=== PATIENT | male | born 1950 | race Caucasian/White ===

== ENCOUNTER 2024-08-23 09:54 | Outpatient (CLI) | payer MEDICARE, SELFPAY ==
[2024-08-23 10:28] LABS: INR 1.2; Partial Thromboplastin Time 25.1 Seconds (22.3-36.8); Prothrombin Time 15.2 Seconds (11.1-14.7)
--- OUTSIDE RECORDS SUMMARY | 2024-08-23 10:32 | XMS_ITS | Encounter Summary ---
Author Organization [facility] Healthcare Address [address] [place] [address] Care Team Providers Care Truss Maker Name Role Phone Monico James MD Primary Care Provider Silver Cohen MD Unavailable [phone] Reason for Visit * Reason Onset Date Comments Medical Question/Miscellaneous 08/20/2024 Encounter Details Date Type Department Care Team (Late st Contact Info) Description 08/20/2024 Telephone [facility] Primary Care at [address] [place] [address] Monico James MD [address] [place], [place] [address] [place] [address] Medical Question/Miscellaneous Social History Tobacco Use Types Packs/Day Years Used Date Smoking Tobacco: Never Smokeless Tobacco: Never Alcohol Use Standard Drinks/Week Comments Yes 0 (1 standard drink = 0.6 oz pur e alcohol) occasional Social Connection and Isolat ion Panel [NHANES] Answer Date Recorded In a typical week, how many times do you talk on the phone with family, friends, or neighbors? More than three times a week 06/10/2021 How often do you get togethe r with friends or relatives? Three times a week 06/10/2021 How often do you attend chur or rastafarian services? More than 4 times per year 06/10/2021 Do you belong to any clubs o r organizations such as buddhist groups, unions, fraternal or athletic groups, or school groups? No 06/10/2021 How often do you attend meet ings of the clubs or organizations you belong to? Never 06/10/2021 Are you , , di vorced, , never , or living with a partner? 06/10/2021 AUDIT-C Answer Date Recorded Q1: How often do you have a drink containing alc ohol? Never 05/29/2021 Q2: How many drinks containi ng alcohol do you have on a typical day when you are drinking? 1 or 2 05/29/2021 Q3: How often do you have six or more drinks on one occasion? Never 05/29/2021 Overall Financial Resource Strain (CARDIA) Answe r Date Recorded How hard is it for you to pa y for the very basics like food, housing, medical care, and heating? Not very hard 06/02/2021 PHQ-2 Answer Date Recorded PHQ-2 Total Score (If total score is 3 or more points, staff should administer the PHQ-9) 0 05/14/2024 Hunger Vital Sign Answer Date Recorded Within the past 12 months, y ou worried that your food would run out before you got the money to buy more. Never true 06/02/20 21 Within the past 12 months, t he food you bought just didn't last and you didn't have money to get more. Never true 06/02/2021 PRAPARE - Transportation Answer Date Re corded In the past 12 months, has l ack of transportation kept you from medical appointments or from getting medications? No 07/2020 In the past 12 months, has l ack of transportation kept you from meetings, work, or from getting things needed for daily living? No 06/02/2021 Housing Stability Vital Sign Answer Ezequiel e Recorded In the last 12 months, was t here a time when you were not able to pay the mortgage or rent on time? No 06/10/2021 In the last 12 months, how many places have you lived? 1 06/10/2021 In the last 12 months, was t here a time when you did not have a steady place to sleep or slept in a usp (including now)? 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 RIDGE ASSEMBLING MACHINE ADJUSTER * Telephone Encounter - Monico James MD - 08/21/2024 10:03 AM CARTRIDGE ASSEMBLING MACHINE ADJUSTER Tell him I did not personally authorize him to be contacted but many of these Medicare insurance companies like to reach out to the patient to make sure they get all of their needed preventive care. it is up to him if he wants to participate or not RIDGE ASSEMBLING MACHINE ADJUSTER * Telephone Encounter - Sammie Elliott - 08/20/2024 4:13 PM CST Medical Question/Miscellaneous Caller???s Concern: Patient is calling to verify that the PCP has not advised a company to contact him for an at home visit to take vitals, etc. Patient states he wants to make sure this is not a scam. Does message need to be routed? Yes-Action Needed RIDGE ASSEMBLING MACHINE ADJUSTER documented in this encounter Plan of Treatment Not on file documented as of this encounter Visit Diagnoses Not on filedocumented in this encounter Care Teams Truss Maker Relationship Specialty Start Date End Date Monico James MD PCP - General 09/30/16 Silver Cohen MD Consulting Physician Orthopedic Surgery 03/19/19 documented as of this encounter
--- OUTSIDE RECORDS SUMMARY | 2024-08-23 10:32 | XMS_ITS | Continuity of Care Document ---
Author Organization [facility] Address [address] [place] [phone] Phone Care Team Providers Care Senior Software Analyst Name Role Phone Gabe Contreras MD Unavailable Unavailable Procedures Procedure Date Office/outpatient visit,[facility] 2009 Office/outpatient visit,[facility] 2009 Advance Directives Directive Yes / No Effective Date File Name No Information Encounters Encounter Description Practice Location Reason(s) For Visit Diagnoses Date Provider Providers Copied on Encounter Office/outpat ient visit,[facility], [address], [address] [place] [address], tel:[phone] Orthopedic [facility] No Information 1 0 Diane Bernal. [address] [place] [address], [address] [place] [address] , . tel: [phone] Office/outpat ient visit,[facility], [address] [place] [address], [address] [place] [address], tel:[phone] [facility] No Information 2 0 Diane Bernal. [address] [place] [address], [address] [place] [address] , . tel: [phone] Family History Family Member Type Diagnosis Age At Onset No Information Payers Payer name Insurance type Covered republican ID Authorgracie bejarano(s) [employer] CI [id number] Social History Type Description Quantity Date Captured Comments Sex Male Smoking Status No Information Chief Complaint And Reason For Visit No Information Reason For Referral Reason For Referral No Information History Of Present Illness Encounter Date Complaint History Of Prese nt Illness No Information Functional Status Date Functional Assessmen t No Information Instructions Date Instruction Additional Infor mation No Information Assessments Type Assessment Date No Information Patient Care Teams Name Effective Dates (start - stop) Status Members No Information
--- OUTSIDE RECORDS SUMMARY | 2024-08-23 10:33 | XMS_ITS | Encounter Summary ---
Author Organization [facility] Healthcare Address [address] [place] [address] Care Team Providers Care Thermograph Operator Name Role Phone Monico James MD Primary Care Provider Silver Cohen MD Unavailable [phone] Encounter Details Date Type Department Care Team (Late st Contact Info) Description 07/23/[address] [facility] Primary Care at [address] [place] [address] Monico James MD [address] [place] [address] [address] [place] [address] Social History Tobacco Use Types Packs/Day Years [...] 06/10/2021 How often do you attend chur ch or cheondoism services? More than 4 times per year 06/10/2021 Do you belong to any clubs o r organizations such as zoroastrian groups, unions, fraternal or athletic groups, or [...] place to sleep or slept in a detention (including now)? 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
--- OUTSIDE RECORDS SUMMARY | 2024-08-23 10:33 | XMS_ITS | Clinical Summary ---
Author Organization [facility] Address [address] [place] [address] Care Team Providers Care Pulmonary Function Technologist Name Role Phone Monico James MD Primary Care Provider Silver Cohen MD Unavailable [phone] Allergies Active Allergy Reactions Criticality Noted Date Comments Adhesive Itching Low 04/01/2019 Clear tape Chlorhexidine Rash,Flushing (skin),Redness Medium 05/04 KEVYN wipes Medications naproxen (ALEVE) 220 mg tablet Take 1 tablet (220 mg total) by mouth every 12 (twelve) hours as needed for pain Active tiZANidine (ZANAFLEX) 2 mg tablet Take 1 tablet (2 mg total) by mouth every 6 (six) hours as needed for muscle spasms 30 tablet 3 10/01/2021 Active warfarin (COUMADIN) 1 mg tablet Take 1 tablet (1 mg total) by mouth daily 90 tablet 3 11/14/2023 Active warfarin (COUMADIN) 5 mg tabletIndicatio ns:Venous Thrombosis Take 1 tablet (5 mg total) by mouth daily 90 tablet 3 11/14/2023 Active topiramate (TOPAMAX) 25 mg tablet Take 1 tablet (25 mg total) by mouth 2 (two) times a day Call me in 4 weeks for higher dose 60 tablet 4 05/14/2024 5 Active phentermine 15 mg capsule Take 1 capsule (15 mg total) by mouth every morning 30 capsule 5 05/14/2024 5 Active methotrexate 2.5 mg tablet TAKE 3 TABLES BY MOUTH JAQUELIN 7 DAYS ON MONDAYS 39 tablet 06/10/2024 Active Active Problems Problem Noted Date Diagnosed Date Chronic bilateral deep venou s thrombosis (DVT) of extremities 12/06/2021 Medicare annual wellness visit, subsequent 01/01 Follow-up examination following surgery 03/02/20 20 Mixed hyperlipidemia 01/26/2017 Keratitis sicca, bilateral 12/16/2016 Trichiasis 08/28/2016 Blepharitis of upper and lower eyelids of both e yes 02/23/2016 Rheumatoid arthritis involving multiple sites ([facility]) 11/16/2013 Overview (10/05/2016): RHEUMATOID ARTHRITIS Benign hypertension 11/16/2013 Overview (10/05/2016): BENIGN HYPERTENSION Deep vein thrombosis (DVT) ([facility]) 11/16/2013 Overview (10/07/2016): DVT (Deep Venous Thrombosis) Other pulmonary embolism with acute cor pulmonal e 11/16/2013 Overview (10/07/2016): Pulmonary Embolism Resolved Problems Problem Noted Date Diagnosed Date Resolved Date Diabetes mellitus 05/16/2023 11/14/2023 Acute cholecystitis 05/28/2021 06/15/20 21 Multiple insect bites 03/19/20202019 Cellulitis of left lower leg 03/19/2020 06/30/2020 Rib fractures 03/08/2019 12/12/2019 Hemopneumothorax 03/08/2019 12/12/2019 Thoracolumbar spine instability 03/07/2019 12/12/2019 Overview (03/09/2019): Added automatically from request for surgery [id number] Slowing of urinary stream 01/14/2014 Overview (10/06/2016): SLOWING URINARY STREAM Vascular disorder of lower extremity 09/09/2013 07/28/2017 Overview (10/07/2016): DVT/EMBLSM LOWER EXT NOS Encounters Date Type Department Care Team Description 08/20/[address] [facility] Primary Care at [address] [place] [address] Monico James MD Medical Question/Miscellaneou s 07/25/2024 8:00 AM SURVEILLANCE ANALYST Clinical Support [facility] Medical [facility] Primary Care at [address] [place] [address] Chronic bilateral deep venous thrombosis (DVT) of extremities (HCC) (Primary Dx); Other acute pulmonary embolism with acute cor pulmonale (HCC) 07/23/[address] [facility] Primary Care at [address] [place] [phone] Monico James MD Referral Request 07/23/[address] [facility] Primary Care at [address] [place] [phone] Monico James MD 07/04/[address] [facility] Medical [facility] [address] [place] [address] [address] [place] [address] Dahlia Horan MA 06/24/2024 Telephone [facility] [address] [place] [address] [address] [place] [address] Swapnil Suazo PA 06/21/2024 9:30 AM SURVEILLANCE ANALYST Office Visit [facility] [address] [place] [address] [address] [place] [address] Swapnil Suazo PA Traumatic complete tear of right rotator cuff, initial encounter (Primary Dx); Biceps tendonitis, right; Osteoarthritis of right AC (acromioclavicular) joint; Degenerative tear of glenoid labrum of right shoulder 06/21/2024 7:40 AM SURVEILLANCE ANALYST - 06/21/2024 11:59 PM SURVEILLANCE ANALYST Hospital Encounter [facility] [address] [place] [address] [address] [place] [address] Discharge Disposition: Discharge to home or self care 06/21/2024 Orders Only [facility] [address] [place] [address] [address] [place] [address] Swapnil Suazo PA Osteoarthritis of right AC (acromioclavicular) joint (Primary Dx); Biceps tendonitis, right; Traumatic complete tear of right rotator cuff, initial encounter 06/04/2024 Orders Only [facility] Primary Care at [address] [place] [address] Monico James MD Rotator cuff tear arthropathy of right shoulder (Primary Dx) 06/04/2024 Telephone [facility] Primary Care at [address] [place] [address] Monico James MD Medical Question/Miscellaneou s 06/03/2024 8:15 AM SURVEILLANCE ANALYST Clinical Support [facility] Primary Care at [address] [place] [address] Deep vein thrombosis (DVT) of non-extremity vein, unspecified chronicity (Primary Dx); Other acute pulmonary embolism with acute cor pulmonale (HCC) 06/03/2024 Telephone [facility] [address] [place] [address] [address] [place] [address] Rohith Boateng MD from Last 3 Months Immunizations Immunization Administration Dates Next Due HPV, Unspecified 05/16/2023(Deferred: Patient Re fused) Influenza, Split 03/30/2009 Influenza, Unspecified 05/14/2024(Deferr ed: Patient Refused),09/29/2023(Deferred: Patient Refused),05/10/2022(Deferred: Patient Refused),06/07/2021(Deferred: Patient Refused),04/02/2021(Deferred: Patient Refused),04/02/2021(Deferred: Patient Refused),04/02/2021(Deferred: Patient Refused),04/02/2020(Deferred: Patient Refused),06/07/2019(Deferred: Patient Refused),04/02/2019(Deferred: Patient Refused),03/27/2019(Deferred: Patient Refused),04/02/2018(Deferred: Patient Refused) Amira (J&J) SARS-CoV-2 Vaccination 09/04/2020 Pfizer SARS-CoV-2 Monovalent Vaccination (12+ Yrs) PURPLE 06/28/2021 Pneumococcal Conjugate, Unspecified 12/06/2021(D eferred: Patient Refused) Tdap 03/07/2019 Surgical History Surgery Date Site/Laterality Comments KNEE ARTHROSCOPY 07/03/1984 - 07/02/1985 Arthroscopy knee HIP ARTHROPLASTY 07/03/2003 - 07/02/2004 Hip replacement CHOLECYSTECTOMY 05/31/2021 Medical History Medical History Date Comments Hx Other Medical 2005 new hip Hypertension Hypertension Arthritis Arthritis Pulmonary embolism (HCC) Pulmona ry embolism Hx Other Medical Deep vein throm bosis Hx Other Medical DVT Gastroesophageal reflux disease GERD Family History Medical History Relation Name Comments Anuerysm Father Aneurysm; Cause of : Aneurysm Other Father Alive and well; Coronary artery disease Mother Tootie nary artery disease; Cause of : Coronary artery disease Heart disease Mother Heart disease; Coronary artery disease Other Fami ly history of Coronary artery disease; Relation Name Status Comments Father Alive Mother (Age 58) Other Social History Tobacco Use Types Packs/Day Years Used Date Smoking Tobacco: Never Smokeless Tobacco: Never Tobacco Cessation:Counseling Given: Not Answered Alcohol Use Standard Drinks/Week Comments Yes 0 [...] How often do you attend chur or quaker services? More than 4 times per year 06/10/2021 Do you belong to any clubs o r organizations such as latter day groups, unions, fraternal or athletic groups, or [...] place to sleep or slept in a senior living (including now)? No 06/10/2021 Sex and Gender Information Value Date Recorded Sex Assigned at Not on file Legal Sex Male 5:57 PM SURVEILLANCE ANALYST Gender Identity Not on file Sexual Orientation Not on file Obstetrics History Last Filed Vital Signs Vital Sign Reading Time Taken Comments Blood Pressure 118/79 06/21/2024 9:25 AM SURVEILLANCE ANALYST Pulse 77 05/14/2024 9:11 AM SURVEILLANCE ANALYST Temperature 36.5 C (97.7 F) 05/14/2024 9:11 AM SURVEILLANCE ANALYST Respiratory Rate 16 05/14/2024 9:11 AM SURVEILLANCE ANALYST Oxygen Saturation 98% 05/14/2024 9:11 AM SURVEILLANCE ANALYST Inhaled Oxygen Concentration - - Weight 105.2 kg (232 lb) 06/21/2024 9:25 AM SURVEILLANCE ANALYST Height 165.1 cm (5' 5 ) 06/21/2024 9:25 AM SURVEILLANCE ANALYST Body Mass Index 38.61 06/21/2024 9:25 AM SURVEILLANCE ANALYST Plan of Treatment Health Maintenance Due Date Last Done Comments Hepatitis B Screening 1968 Pneumococcal vaccine 65+ (1 of 2 - PCV) 1970 Zoster Vaccine (1 of 2) 1970 Colon Cancer Screening-Colonoscopy 02/11/2023 02/11/2013, 02/11/2013 Covid-19 Vaccine (3 - 2023-2 5 season) 2024 06/28/2021, 09/04/2020 Influenza Vaccine (#1) 2024 03/30/2009 Prostate Cancer Screening-PSA 05/08/2024, 04/28/2022, 12/24/2020, Additional history exists Depression Screening 05/14/2025 05/14/2024, 11/14/2023, 05/16/2023, Additional history exists Fall Risk Assessment 05/14/2025 05/14/2024, 11/14/2023, 05/16/2023, Additional history exists Well Visit 65+ 05/14/2025 05/14/2024, 05/03, 05/10/2022, Additional history exists DTaP/Tdap/Td Vaccine (2 - Td or Tdap) 03/07/2029 03/07/2019 Colon Cancer Screening-CT Colonography Discontinued 02/11/2013, 02/11/2013 Colon Cancer Screening-DNA Stool Discontinued 02/12/20 13, 02/11/2013 Colon Cancer Screening-FIT Discontinued 02/11/2013, Colon Cancer Screening-Sigmoidoscopy Discontinued 02/11/2013, 02/11/2013 Hepatitis C Screening Completed 07/14/2017, 018 Medical Devices Implanted Type Area Respiratory Coordinator Device Identifier Shelf Expiration Date Model / Serial / Lot Allosource [id number] Crushed Chip Frozen Graft 30ml Bone Cancellous - [id number] Implanted:Qty: 1 on 03/09/2019 by Silver Cohen MD at [facility] N/A: Spine Lumbar Allosource 04/12/2023 [id number] / / [id number] Depuy Spine [id number] Expedium 1 Inner Monoaxial Spine Screw Set Titanium - [id number] Implanted:Qty: 8 on 03/09/2019 by Silver Cohen MD at [facility] N/A: Spine Lumbar Depuy Spine [id number] / / Depuy Spine [id number] Expedium 5.5mm 480mm Iam Spinal Titanium Nonsterile - [id number] Implanted:Qty: 1 on 03/09/2019 by Silver Cohen MD at [facility] N/A: Spine Lumbar Depuy Spine [id number] / / Depuy Spine [id number] Expedium 6mm 45mm 1 Innie Polyaxial Spine Screw Bone Titanium - [id number] Implanted:Qty: 8 on 03/09/2019 by Silver Cohen MD at [facility] N/A: Spine Lumbar Depuy Spine [id number] / / Medtronic Sofamor Dane[employer] [id number] Infuse 14mm 23mm Absorbable Sponge Sterile Water Syringe Needle - [id number] Implanted:Qty: 1 on 03/09/2019 by Silver Cohen MD at [facility] N/A: Spine Lumbar Medtronic Inc 01/30/2021 [id number] / / [id number] Procedures Procedure Name Priority Date/Time Associated Diagnosis Comments POCT INR Routine 07/25/2024 8:17 AM SURVEILLANCE ANALYST Chronic bilateral deep venous thrombosis (DVT) of extremities (HCC) Other acute pulmonary embolism with acute cor pulmonale (HCC) XR SHOULDER RIGHT 2 OR MORE VIEWS Routine 06/21/2024 9:51 AM SURVEILLANCE ANALYST Traumatic complete tear of right rotator cuff, initial encounter POCT INR Routine 06/03/2024 8:30 AM SURVEILLANCE ANALYST Deep vein thrombosis (DVT) of non-extremity vein, unspecified chronicity Other acute pulmonary embolism with acute cor pulmonale (HCC) PSA SCREEN Routine 05/08/2023 9:50 AM SURVEILLANCE ANALYST Urine frequency HEPATITIS C AB REFLEX RNA QUANT PCR Routine 07/14/2017 11:53 AM SURVEILLANCE ANALYST HM COLONOSCOPY Routine 02/11/2013 from Last 3 Months or Most Recently Relevant to Health Maintenance Results * (ABNORMAL) POCT INR (07/25/2024 8:17 AM SURVEILLANCE ANALYST) INR, POC 1.80(A) 2.00 - 3.00 Blood (Blood, Venous) 07/25/2024 8:17 AM SURVEILLANCE ANALYST Narrative Resulting Agency Comment Patient is taking 6 mg Sat, Sun; 5 mg all other daysGoal 2-3Dx: DVT, PELab Results Component Value Date INR 1.8 07/25/24 INR 1.70 (A) 06/03/2024 6 mg Sat, Sun; 5 mg all other days Lab Results Component Value Date INR 1.70 (A) 06/03/2024 INR 2.30 04/30/2024 6 mg Sat, Sun; 5 mg all other days Lab Results Component Value Date INR 1.70 (A) 06/03/2024 INR 2.30 04/30/2024 INR 1.80 (A) 03/21/2024 6 mg Sat, Sun; 5 mg all other days Is the patient taking medication correctly? YesIs the patient feeling well? YesIs patient following prescribed diet? YesHas the patient h ad any recent changes to medications? NoDoes the patient have any bruising or bleeding? NoHas the patient been hospitalized since the last PT/INR? NoIs the patient taking over the counter pain relievers? NoIs the patient taking multivitamins? NoDoes the patient have dental or other surgery scheduled in near [facility]? No us Monico James MD POINT OF CARE TEST JUAN MANUEL DIXON Final Result * XR Shoulder Right 2 or More Views (06/21/2024 9:51 AM SURVEILLANCE ANALYST) Anatomical Region Laterality Modality Upper Extremities, Shoulder Right Digi edith Radiography Narrative 06/21/2024 11:34 AM SURVEILLANCE ANALYST Views of the right shoulder reviewed interpreted today. No evidence of fracture dislocation. Glenohumeral joint space well-maintained. Degenerative changes noted at AC joint with joint space narrowing subchondral sclerosis subacromial spurring. Swapnil SOARES IMG XR PROCEDURES Lorrie l Result * (ABNORMAL) POCT INR (06/03/2024 8:30 AM SURVEILLANCE ANALYST) INR, POC 1.70(A) 2.00 - 3.00 Blood (Blood, Venous) 06/03/2024 8:30 AM SURVEILLANCE ANALYST Narrative Resulting Agency Comment Patient is taking 6 mg Sat, Sun; 5 mg all other daysGoal 2-3Dx: DVT, PELab Results Component Value Date INR 1.7 06/03/2024 INR 2.30 04/30/2024 6 mg Sat, Sun; 5 mg all other days Lab Results Component Value Date INR 2.30 04/30/2024 INR 1.80 (A) 03/21/2024 6 mg Sat, Sun; 5 mg all other days Lab Results Component Value Date INR 2.30 04/30/2024 INR 1.80 (A) 03/21/2024 INR 2.60 02/08/2024 6 mg Sat, Sun; 5 mg all other days Is the patient taking medication correctly? YesIs the patient feeling well? YesIs patient following prescribed diet? YesHas the patient h ad any recent changes to medications? NoDoes the patient have any bruising or bleeding? NoHas the patient been hospitalized since the last PT/INR? NoIs the patient taking over the counter pain relievers? NoIs the patient taking multivitamins? NoDoes the patient have dental or other surgery scheduled in near critical access hospital? No Monico James MD POINT OF CARE TEST JUAN MANUEL DIXON Final Result * PSA screen (05/08/2023 9:50 AM SURVEILLANCE ANALYST) PSA-Total 0.59 <=6.20 ng/mL KENJI PAULSON ([place]) Comment: Interpretive Data AGE SEX REFERENCE INTERVAL 0 minutes-150 years Female None 0 minutes-49 years Male None 50-59 years Male 0-3.90 60-69 years Male 0-5.40 70-79 years Male 0-6.20 80-150 years Male 0-6.20 The Ladonna PSA Total assay procedure was used. Results from different manufacturers or methods may not be comparable. Serial testing should be performed using the same method. Current interpretive data last revised 21. Blood 05/08/2023 9:50 AM SURVEILLANCE ANALYST 05/08/2023 9:58 AM SURVEILLANCE ANALYST Monico James MD LAB BLOOD ORDERABLES Fi nal Result KENJI [facility] [address] [facility] [place] [address] * Hepatitis C Antibody Reflex Hepatitis C RNA Quantitative PCR (07/14/2017 11:53 AM SURVEILLANCE ANALYST) Hep C Ab Negative Negative KENJI Blood specimen (specimen) 07/14/2017 11:53 AM SURVEILLANCE ANALYST 07/14/2017 12:13 PM SURVEILLANCE ANALYST Narrative KENJI - 07/14/2017 12:53 PM SURVEILLANCE ANALYST Monico James MD LAB MICROBIOLOGY - GENE RAL ORDERABLES Final Result KENJI [id number] [address] Department [place] [address] * COLONOSCOPY (02/11/2013) Colonoscopy Normal Comment:Hemorrhoidal disease Historical Provider HEALTH MAINTENANCE Final Result from Last 3 Months or Most Recently Relevant to Health Maintenance Insurance MEDICARE AETNA COVENTRY HMO/POS MEDICARE CIGNA MEDICARE SUPPLEMENT INSURANCE [employer] PPO POS AETNA [facility]TRA Advance Directives For more information, please contact: [phone] * Full Code (Latest Code Status on File) Date Activated Date Inactivated Comments 05/28/2021 11:35 PM 06/01/2021 4:49 PM * Full Code Date Activated Date Inactivated Comments 03/08/2019 1:05 AM 03/19/2019 10:17 PM Care Teams Pulmonary Function Technologist Relationship Specialty Start Date End Date Monico James MD PCP - General 09/30/16 Silver Cohen MD Consulting Physician Orthopedic Surgery 03/19/19
--- OUTSIDE RECORDS SUMMARY | 2024-08-23 10:33 | XMS_ITS | Continuity of Care Document ---
Author Organization [facility] Address [address] [place] [address] Phone Care Team Providers Care Auto Overhauler Name Role Phone Satya Abreu Unavailable Unavailable Procedures Procedure Date Close Tear Duct Opening Close Tear Duct Opening Office/outpatient Visit, Est Office/outpatient Visit, Est Office/outpatient Visit, Est Office/outpatient Visit, Est Office/outpatient Visit, Est Office/outpatient Visit, Est Office/outpatient Visit, Est Eye Exam Established Pt Office/outpatient Visit, Est Office Consultation Advance Directives Directive Yes / No Effective Date File Name No Information Encounters Encounter Description Practice Location Reason(s) For Visit Diagnoses Date Provider Providers Copied on Encounter [facility], [address], [place], [place], [id number], [place] tel:[phone] [facility] No Information 2-201 0 Brady Hernadez. [address] , [address], [place], [address], [place]. tel:[phone] Referring Provider: Adele Fernandez, [address], [place], [address]. tel:[phone] Office/outpat ient Visit, Est [facility], [address] [place] [address] [address], [place], [place], [id number], [place] tel:[phone] [facility] No Information 0 [facility], [place], [place], [facility], . tel:[phone] Referring Provider: Adele Fernandez, [address] [place] [address], [facility]. tel:[phone] Office/outpat ient Visit, [facility], [address] [place] [address] [address], [place], [place], [id number], tel:[phone] [facility] No Information 0-201 0 Krishnasamy Reece. [address] [place] [address], [facility], . tel:[phone] Referring Provider: Adele Fernandez, [address] [place] [address], [facility]. tel:[phone] Office/outpat ient Visit, [facility], [address] [place] [address] [address], [place], [place], [id number], [place] tel:[phone] [facility] No Information 8-201 0 Krishnasamy Reece. [address] [place] [address] [place] [address], [facility], [place]. tel:[phone] Referring Provider: Adele Fernandez, [address] [place] [address], [facility]. tel:[phone] Office/outpat ient Visit, [facility], [address] [place] [address] [address], [place], [place], [id number], [place] tel:[phone] [facility] [place] No Information 1-201 0 Krishnasamy Reece. [address] [place] [address] [place] [address], [facility], [place]. tel:[phone] Referring Provider: Adele Fernandez, [address] [place], [address]. tel:[phone] Office/outpat ient Visit, [facility], [address] [place] [address] [address], [place], [place], [id number], [place] tel:[phone] [place] [facility] No Information 4200 9 Krishnasamy Reece. [address] [facility] [address], [place], [facility], [place]. tel:[phone] Referring Provider: Adele Fernandez, [address] [place] [address], [address]. tel:[phone] Office/outpat ient Visit, [facility], [address] [place] [address] [address], [place], [place], [id number], [place] tel:[phone] [place] [facility] No Information 0200 9 Krishnasamy Reece. [address] [facility] [address], [place], [address], [place]. tel:[phone] Referring Provider: Adele Fernandez, [place], [address]. [phone] Office/outpat ient Visit, [facility], [address] [place] [address] [address], [place], [place], [id number], [place] tel:[phone] [place] No Information 3200 9 Krishnasamy Reece. [address] [facility] [address], [place], [address], [place]. tel:[phone] Referring Provider: Adele Fernandez, [address] [place], [address]. tel:[phone] [facility], [address] [place] [address] [address], [place], [place], [id number], [place] tel:[phone] [place] No Information 5200 9 Ihsan Newell. [address] [facility] [address] [facility] [address], [place], [address], [place]. tel:[phone] Referring Provider: Paul Helms MD M, [address] [place], [address]. tel:[phone] Office/outpat ient Visit, Est [facility], [address], [place], [place], [id number], [place] tel:[phone] [place] No Information Aug-2 6-200 7 Wankum Romero. [address] [facility] [place], [facility] [place], [id number], [place]. tel:[phone] Office Consultation [facility], [address], [place], [place], [id number], [place] tel:[phone] [place] No Information Aug-0 5-200 7 Wankum Romero. [address] [employer], [address], [place], [place], [id number], [place]. [phone] Referring Provider: Adele Fernandez, [address] [place], [address]. tel:[phone] Family History Family Member Type Diagnosis Age At Onset No Information Payers Payer name Insurance type Covered green party ID Authoriza tion(s) No Information Social History Type Description Quantity Date Captured [...]
--- OUTSIDE RECORDS SUMMARY | 2024-08-23 10:33 | XMS_ITS | Encounter Summary ---
Author Organization [facility] Address [address] [place] [address] Care Team Providers Care Border Machine Operator Name Role Phone Monico James MD Primary Care Provider Silver Cohen MD Unavailable [phone] Reason for Visit * Reason Onset Date Comments Referral Request 07/23/2024 Encounter Details Date Type Department Care Team (Late st Contact Info) Description 07/23/2024 Telephone [facility] Primary Care at [address] [place] [address] Monico James MD [address] [place], [place] [address] [place] [address] Referral Request Social History Tobacco Use Types Packs/Day Years [...] How often do you attend chur or druze services? More than 4 times per year 06/10/2021 Do you belong to any clubs o r organizations such as mosque groups, unions, fraternal or athletic groups, or [...] place to sleep or slept in a jail (including now)? No 06/10/2021 Sex and Gender Information Value Date Recorded Sex Assigned at Not on file Legal Sex Male 5:57 PM BRAZING MACHINE OPERATOR HELPER Gender Identity Not on file Sexual Orientation Not on file documented as of this encounter Miscellaneous Notes * Telephone Encounter - Nell Fatima - 07/23/2024 4:03 PM CST Order faxed to Dr Hawthorne's office. We have that the pt's insurance is Medicare A&B which does not require an insurance authorization. ING MACHINE OPERATOR HELPER * Telephone Encounter - FredericksangitaAnnia wallace - 07/23/2024 3:35 PM CST Referral Provider Name: Stu Hawthorne Specialty: ortho Address: [address] [place] [address] [address], Zip: [facility] [address] Diagnosis Code/Symptom/Reason Patient is being seen: Rotator cuff tear arthropathy of right shoulder (M75.101,M12.811) Date of Appointment: 07/24/24 NPI#: [id number] Tax ID#: [id number] Is insurance in chart up to date? Yes Additional Comments: pt has an appt early tomorrow and needing this expedited Does message need to be routed? Yes-Action Needed ING MACHINE OPERATOR HELPER documented in this encounter Plan of Treatment Not on file documented as of this encounter Visit Diagnoses Not on filedocumented in this encounter Care Teams Border Machine Operator Relationship Specialty Start Date End Date Monico James MD PCP - General 09/30/16 Silver Cohen MD Consulting Physician Orthopedic Surgery 03/19/19 documented as of this encounter
--- OUTSIDE RECORDS SUMMARY | 2024-08-23 10:33 | XMS_ITS | Referral Summary ---
Author Organization [facility] Address [address] [place] [address] Care Team Providers Care Marina Sales And Service Supervisor Name Role Phone Monico James MD Primary Care Provider Silver Cohen MD Unavailable [phone] Encounters Date Type Department Care Team Description 08/20/2024 Telephone [facility] Medical Group Primary Care at [address] [place] [phone] Monico James MD Medical Question/Miscellaneou s 07/25/2024 8:00 AM NEWS CLERK Clinical Support [facility] Group Primary Care at [address] [place] [phone] Chronic bilateral deep venous thrombosis (DVT) of extremities (HCC) (Primary Dx); Other acute pulmonary embolism with acute cor pulmonale (HCC) 07/23/2024 Telephone [facility] Medical Group Primary Care at [address] [place] [address] Monico James MD Referral Request 07/23/2024 Telephone [facility] Medical Group Primary Care at [address] [place] [address] Monico James MD 07/04/2024 Documentation [facility] Group Orthopedics and Sports Medicine [address] [facility] [facility] [address] [place] [phone] Dahlia Horan MA 06/24/2024 Telephone [facility] Orthopedics and Sports Medicine [address] [place] [address] [address] [place] [address] Swapnil Suazo PA 06/21/2024 Orders Only [facility] Orthopedics and Sports Medicine [address] [place] [address] [address] [place] [address] Swapnil Suazo PA Osteoarthritis of right AC (acromioclavicular) joint (Primary Dx); Biceps tendonitis, right; Traumatic complete tear of right rotator cuff, initial encounter 06/21/2024 7:40 AM NEWS CLERK - 06/21/2024 11:59 PM NEWS CLERK Hospital Encounter [facility] Orthopedics and Sports Medicine [address] [place] [address] [address] [place] [address] Discharge Disposition: Discharge to home or self care 06/21/2024 9:30 AM NEWS CLERK Office Visit [facility] Orthopedics and Sports Medicine [address] [place] [address] [address] [place] [address] Swapnil Suazo PA Traumatic complete tear of right rotator cuff, initial encounter (Primary Dx); Biceps tendonitis, right; Osteoarthritis of right AC (acromioclavicular) joint; Degenerative tear of glenoid labrum of right shoulder 06/04/2024 Orders Only [facility] Medical Group Primary Care at [address] [phone] Monico James MD Rotator cuff tear arthropathy of right shoulder (Primary Dx) 06/04/2024 Telephone [facility] Medical [facility] Primary Care at [address] [place] [address] Monico James MD Medical Question/Miscellaneou s 06/03/2024 Telephone [facility] Orthopedics and Sports Medicine [address] [place] [address] [address] [place] [address] Rohith Boateng MD 06/03/2024 8:15 AM NEWS CLERK Clinical Support [facility] Medical [facility] Primary Care at [address] [place] [address] Deep vein thrombosis (DVT) of non-extremity vein, unspecified chronicity (Primary Dx); Other acute pulmonary embolism with acute cor pulmonale (HCC) from Last 3 Months Allergies Active Allergy Reactions Criticality Noted Date [...] 02/23/2016 Rheumatoid arthritis involving multiple sites (C MS/HCC) 11/16/2013 Overview (10/05/2016): RHEUMATOID ARTHRITIS Benign hypertension 11/16/2013 Overview (10/05/2016): BENIGN HYPERTENSION Deep vein thrombosis (DVT) ([facility]) 11/16/2013 Overview (10/07/2016): DVT (Deep Venous Thrombosis) [...] (03/09/2019): Added automatically from request for surgery [id number] Slowing of urinary stream 01/14/2014 Overview (10/06/2016): SLOWING URINARY STREAM Vascular disorder of lower extremity 09/09/2013 07/28/2017 Overview (10/07/2016): DVT/EMBLSM LOWER EXT NOS Immunizations Immunization Administration Dates Next Due HPV, Unspecified 05/16/2023(Deferred: Patient Re fused) Influenza, Split 03/30/2009 Influenza, Unspecified 05/14/2024(Deferr ed: Patient Refused),09/29/2023(Deferred: Patient Refused),05/10/2022(Deferred: Patient Refused),06/07/2021(Deferred: Patient Refused),04/02/2021(Deferred: Patient Refused),04/02/2021(Deferred: Patient Refused),04/02/2021(Deferred: Patient Refused),04/02/2020(Deferred: Patient Refused),06/07/2019(Deferred: Patient Refused),04/02/2019(Deferred: Patient Refused),03/27/2019(Deferred: Patient Refused),04/02/2018(Deferred: Patient Refused) [employer] ([employer]) SARS-CoV-2 Vaccination 09/04/2020 Pfizer SARS-CoV-2 Monovalent Vaccination (12+ Yrs) PURPLE 06/28/2021 Pneumococcal Conjugate, Unspecified 12/06/2021(D eferred: Patient Refused) Tdap 03/07/2019 Social History Tobacco Use Types Packs/Day Years [...] week 06/10/2021 How often do you attend [facility] or yazidism services? More than 4 times per year 06/10/2021 Do you belong to any clubs o r organizations such as jehovah's witness groups, unions, fraternal or athletic groups, or [...] on file Legal Sex Male 5:57 PM NEWS CLERK Gender Identity Not on file Sexual Orientation Not on file Last Filed Vital Signs Vital Sign Reading Time Taken Comments Blood Pressure 118/79 06/21/2024 9:25 AM NEWS CLERK Pulse 77 05/14/2024 9:11 AM NEWS CLERK Temperature 36.5 C (97.7 F) 05/14/2024 9:11 AM NEWS CLERK Respiratory Rate 16 05/14/2024 9:11 AM NEWS CLERK Oxygen Saturation 98% 05/14/2024 9:11 AM NEWS CLERK Inhaled Oxygen Concentration - - Weight 105.2 kg (232 lb) 06/21/2024 9:25 AM NEWS CLERK Height 165.1 cm (5' 5 ) 06/21/2024 9:25 AM NEWS CLERK Body Mass Index 38.61 06/21/2024 9:25 AM NEWS CLERK Plan of Treatment Not on file Medical Devices Implanted Type Area Signwriter Device Identifier Shelf Expiration Date Model / Serial / Lot Allosource [id number] Crushed Chip Frozen Graft 30ml Bone Cancellous - [id number] Implanted:Qty: 1 on 03/09/2019 by Silver Cohen MD at [facility] N/A: Spine Lumbar Allosource 04/12/2023 [id number] / / [id number] Depuy Spine [id number] Expedium 1 Inner Monoaxial Spine Screw Set Titanium - [id number] Implanted:Qty: 8 on 03/09/2019 by Silver Cohen MD at [facility] N/A: Spine Lumbar Depuy Spine [id number] / / Depuy Spine [id number] Expedium 5.5mm 480mm Iam Spinal Titanium Nonsterile - [id number] Implanted:Qty: 1 on 03/09/2019 by Silver Cohen MD at [facility] N/A: Spine Lumbar Depuy Spine [id number] / / Depuy Spine [id number] Expedium 6mm 45mm 1 Innie Polyaxial Spine Screw Bone Titanium - [id number] Implanted:Qty: 8 on 03/09/2019 by Silver Cohen MD at [facility] N/A: Spine Lumbar Depuy Spine [id number] / / Medtronic Sofamor Danek [id number] Infuse 14mm 23mm Absorbable Sponge Sterile Water Syringe Needle - [id number] Implanted:Qty: 1 on 03/09/2019 by Silver Cohen MD at [facility] N/A: Spine Lumbar Medtronic Inc 01/30/2021 [id number] / / [id number] Procedures Procedure Name Priority Date/Time Associated Diagnosis Comments POCT INR Routine 07/25/2024 8:17 AM NEWS CLERK Chronic bilateral deep venous thrombosis (DVT) of extremities (HCC) Other acute pulmonary embolism with acute cor pulmonale (HCC) XR SHOULDER RIGHT 2 OR MORE VIEWS Routine 06/21/2024 9:51 AM NEWS CLERK Traumatic complete tear of right rotator cuff, initial encounter POCT INR Routine 06/03/2024 8:30 AM NEWS CLERK Deep vein thrombosis (DVT) of non-extremity vein, unspecified chronicity Other acute pulmonary embolism with acute cor pulmonale (HCC) PSA SCREEN Routine 05/08/2023 9:50 AM NEWS CLERK Urine frequency HEPATITIS C AB REFLEX RNA QUANT PCR Routine 07/14/2017 11:53 AM NEWS CLERK COLONOSCOPY Routine 02/11/2013 from Last 3 Months or Most Recently Relevant to Health Maintenance Results * (ABNORMAL) POCT INR (07/25/2024 8:17 AM NEWS CLERK) INR, POC 1.80(A) 2.00 - 3.00 Blood (Blood, Venous) 07/25/2024 8:17 AM NEWS CLERK Narrative Resulting Agency Comment Patient is taking [...] dental or other surgery scheduled in near community health? No us Monico James MD POINT OF CARE TEST JUAN MANUEL DIXON Final Result * XR Shoulder Right 2 or More Views (06/21/2024 9:51 AM NEWS CLERK) Anatomical Region Laterality Modality Upper Extremities, Shoulder Right Digi edith Radiography Narrative 06/21/2024 11:34 AM NEWS CLERK Views of the right shoulder reviewed interpreted today. No evidence of fracture dislocation. Glenohumeral joint space well-maintained. Degenerative changes noted at AC joint with joint space narrowing subchondral sclerosis subacromial spurring. Swapnil SOARES IMG XR PROCEDURES Lorrie l Result * (ABNORMAL) POCT INR (06/03/2024 8:30 AM NEWS CLERK) INR, POC 1.70(A) 2.00 - 3.00 Blood (Blood, Venous) 06/03/2024 8:30 AM NEWS CLERK Narrative Resulting Agency Comment Patient is taking [...] dental or other surgery scheduled in near community health? No Monico James MD POINT OF CARE TEST JUAN MANUEL DIXON Final Result * PSA screen (05/08/2023 9:50 AM NEWS CLERK) PSA-Total 0.59 <=6.20 ng/mL KENJI PAUL[facility] ([place]) [...] last revised 21. Blood 05/08/2023 9:50 AM NEWS CLERK 05/08/2023 9:58 AM NEWS CLERK Monico James MD LAB BLOOD ORDERABLES Fi nal Result [facility]I [facility] ([facility] [address] [facility] [facility] Department [place] [address] * Hepatitis C Antibody Reflex Hepatitis C RNA Quantitative PCR (07/14/2017 11:53 AM NEWS CLERK) Hep C Ab Negative Negative [facility] Blood specimen (specimen) 07/14/2017 11:53 AM NEWS CLERK 07/14/2017 12:13 PM NEWS CLERK Narrative KENJI - 07/14/2017 12:53 PM NEWS CLERK Monico James MD LAB MICROBIOLOGY - GENE RAL ORDERABLES Final Result Performing Organization Address City/[facility]/ZIP Co de Phone Number KENJI [address] [facility] Department [place] [address] * COLONOSCOPY (02/11/2013) Colonoscopy Normal Comment:Hemorrhoidal disease Historical Provider HEALTH MAINTENANCE Final Result from Last 3 Months or Most Recently Relevant to Health Maintenance Insurance MEDICARE [employer] HMO/POS MEDICARE [facility] MEDICARE SUPPLEMENT INSURANCE [employer] PPO POS AETNA [facility] ADVANTRA Advance Directives For more information, please contact: [phone] * Full Code (Latest Code Status on File) Date Activated Date Inactivated Comments 05/28/2021 11:35 PM 06/01/2021 4:49 PM * Full Code Date Activated Date Inactivated Comments 03/08/2019 1:05 AM 03/19/2019 10:17 PM Care Teams Marina Sales And Service Supervisor Relationship Specialty Start Date End Date Monico James MD PCP - General 09/30/16 Silver Cohen MD Consulting Physician Orthopedic Surgery 03/19/19
--- OUTSIDE RECORDS SUMMARY | 2024-08-23 10:33 | XMS_ITS | Encounter Summary ---
Author Organization [facility] Address [address] [place] [address] Phone Care Team Providers Care Fire Engineer Name Role Phone Monico James MD Primary Care Provider Silver Cohen MD Unavailable [phone] Venus Baer RN Unavailable [phone] Flo Davis RN Unavailable [phone] Encounter Details Date Type Department Care Team (Late st Contact Info) Description 07/14/2017 Orders Only [facility] ProviderMarck MD [address] [place] [address] Social History Tobacco Use Types Packs/Day Years Used Date Smoking Tobacco: Never Alcohol Use Standard Drinks/Week Comments Yes 0 (1 standard drink = 0.6 oz pur e alcohol) Sex and Gender Information Value Date Recorded Sex Assigned at Not on file Legal Sex Male 5:57 PM CORPORATE SALES TRAINER Gender Identity Not on file Sexual Orientation Not on file documented as of this encounter Plan of Treatment Not on file documented as of this encounter Procedures Procedure Name Priority Date/Time Associated Diagnosis Comments DISCHARGE LABORATORY CUMULATIVE REPORT 07/14/2017 12:00 AM CORPORATE SALES TRAINER documented in this encounter Results * DISCHARGE LABORATORY CUMULATIVE REPORT (07/14/2017 12:00 AM CORPORATE SALES TRAINER) Narrative 07/14/2017 12:00 AM CORPORATE SALES TRAINER Ordered by an unspecified provider. us Historical Provider LAB BLOOD ORDERABLES Lorrie l Result documented in this encounter Visit Diagnoses Not on filedocumented in this encounter Care Teams Fire Engineer Relationship Specialty Start Date End Date Monico James MD PCP - General 09/30/16 Silver Cohen MD Consulting Physician Orthopedic Surgery 03/19/19 Venus Baer, CHACHO [address] [place] [address] Adult Health Clinical Nurse Specialist 03/20/19 04/21/19 Flo Davis, CHACHO [address] [place] [address] Adult Health Clinical Nurse Specialist 06/02/21 07/08/21 documented as of this encounter
== END 2024-08-23 09:55 | disposition home or self-care (01) ==
LOC: ANHSURGERY 09:58
PROVIDERS: Anesthesiology; PCP Internal Medicine; Visit Provider Orthopaedic Surgery
DX: Z51.81 Encounter for therapeutic drug level monitoring (principal)
CPT/HCPCS: 36415; 85610; 85730

== ENCOUNTER 2024-08-27 00:06 | Day surgery (SDC) | payer MEDICARE, SELFPAY ==
[2024-08-14 13:39] VITALS: BMI 34.9
--- NOTE | 2024-08-14 14:10 | PC.NURSE ---
Report to the Outpatient Waiting Room, entrance under the green pavilion located off [facility], at time __11:30AM on date __08/27/24 . Planned Procedure Time: __1:30PM .? Time changes happen often and if your time is changed the preop area will call you the afternoon before. - You and your visitor will be asked to self-screen and do not enter if you have any COVID symptoms. Please call surgeon if you need to reschedule. - A mask is optional within the hospital at this time. Patients may have clear liquids (water, carbonated beverages, clear teas, apple juice) until 3 hours prior to surgery (10:30AM) with a maximum of 20 ounces. - No food from midnight until time of surgery and no smoking, or chewing tobacco (or any form of nicotine). No chewing gum, candy or mints. Take only the following medications with a SIP of water on the morning of surgery: NONE DO NOT STOP ANY OF YOUR OTHER PRESCRIPTION MEDICATIONS PRIOR TO SURGERY EXCEPT THE FOLLOWING Hold all vitamins and supplements for 3 days per anesthesiologist.- LAST DOSE 08/23/24. Medications to discontinue per physician ___HOLD NAPROXEN 7 DAYS PRE-OP PER DR GARCIA- LAST DOSE 08/19/24. HOLD COUMADIN 5 DAYS PRE-OP PER DR GARCIA- LAST DOSE 08/21/24. Please no make-up, nail romansh, hairspray, perfume, deodorant, or body powder the day of surgery.? No jewelry (including any body piercings) or valuables the day of surgery, leave them at home.? Please take a shower or bath the night before, or the morning of, surgery with an antibacterial soap.? Wear comfortable, loose fitting clothing.? - Jewelry must be removed prior to entering the operating room.? Rings and piercings that are not removed may be cut off. - The hospital will not accept responsibility for valuables.? - Please leave all valuables, including medications, at home the day of surgery. If you are going home after surgery, a licensed public transit bus driver must drive you home.? - NO public transportation without another adult if you receive anesthesia. - We recommend that an adult stay with you for 24 hours following discharge. - We also recommend that you do not drive, make important decision, drink alcoholic beverages, or take any drugs that were not prescribed by your health care provider for at least 24 hours after your discharge time. Follow any additional instructions given to you from your surgeon. Telephone instructions given to ____PATIENT and asked if any additional questions and then verbalized understanding. Patient advised to call surgeon office or pre surgery nurse liaison [phone] if any additional questions.
[2024-08-27] VITALS (9 sets, daily range): BP systolic 112–134; BP diastolic 52–68; PULSE 65–75; RESP 14–19; TEMP 36.2–36.4; O2SAT 97–100
--- OUTSIDE RECORDS SUMMARY | 2024-08-27 00:09 | XMS_ITS | Clinical Summary ---
Author Organization [facility] Address [address] [place] [address] Care Team Providers Care Associate Professor Of Media Arts Name Role Phone Monico James MD Primary Care Provider Silver Cohen MD Unavailable [phone]- [phone] Allergies Active Allergy Reactions Criticality Noted Date [...] 02/23/2016 Rheumatoid arthritis involving multiple sites ([facility]) 11/16/2013 Overview (10/05/2016): RHEUMATOID ARTHRITIS Benign hypertension 11/16/2013 Overview (10/05/2016): BENIGN HYPERTENSION Deep vein thrombosis (DVT) ([facility]) 11/16/2013 Overview (10/07/2016): DVT (Deep Venous [...] (03/09/2019): Added automatically from request for surgery [id number] Slowing of urinary stream 01/14/2014 Overview (10/06/2016): SLOWING URINARY STREAM Vascular disorder of lower extremity 09/09/2013 07/28/2017 Overview (10/07/2016): DVT/EMBLSM LOWER EXT NOS Encounters Date Type Department Care Team Description 08/23/2024 Orders Only [facility] Health Information Management [address] [place] [address] Scanning, Provider 08/23/2024 Anticoagulation Telephone Call [facility] Medical Group Primary Care at [address] [place] [phone] Monico James MD Deep vein thrombosis (DVT) of non-extremity vein, unspecified chronicity (Primary Dx); Chronic bilateral deep venous thrombosis (DVT) of extremities (HCC); Other acute pulmonary embolism with acute cor pulmonale (HCC) 08/20/2024 Telephone [facility] Medical Group Primary Care at [address] [place] [phone] Monico James MD Medical Question/Miscellaneo us 07/25/2024 8:00 AM PINBALL MACHINE REPAIRER Clinical Support [facility] Primary Care at [address] [place] [phone] Chronic bilateral deep venous thrombosis (DVT) of extremities (HCC) (Primary Dx); Other acute pulmonary embolism with acute cor pulmonale (HCC) 07/23/2024 Telephone [facility] Medical Group Primary Care at [address] [place] [phone] Monico James MD Referral Request 07/23/2024 Telephone [facility] Medical Group Primary Care at [address] [place] [address] Monico James MD 07/04/2024 Documentation [facility] Medical Group Orthopedics and Sports Medicine [address] [place] [address] [address] [place] [address] Dahlia Horan MA 06/24/2024 Telephone [facility] Medical [facility] Orthopedics and Sports Medicine [address] [place] [address] [address] [place] [address] Swapnil Suazo PA 06/21/2024 9:30 AM PINBALL MACHINE REPAIRER Office Visit [facility] Orthopedics and Sports Medicine [address] [place] [address] [address] [place] [address] Swapnil Suazo PA Traumatic complete tear of right rotator cuff, initial encounter (Primary Dx); Biceps tendonitis, right; Osteoarthritis of right AC (acromioclavicular) joint; Degenerative tear of glenoid labrum of right shoulder 06/21/2024 7:40 AM PINBALL MACHINE REPAIRER - 06/21/2024 11:59 PM PINBALL MACHINE REPAIRER Hospital Encounter [facility] Orthopedics and Sports Medicine [address] [place] [address] [address] [place] [phone] Discharge Disposition: Discharge to home or self care 06/21/2024 Orders Only [facility] Orthopedics and Sports Medicine [address] [place] [address] [address] [place] [phone] Swapnil Suazo PA Osteoarthritis of right AC (acromioclavicular) joint (Primary Dx); Biceps tendonitis, right; Traumatic complete tear of right rotator cuff, initial encounter 06/04/2024 Orders Only [facility] Primary Care at [address] [place] [phone] Monico James MD Rotator cuff tear arthropathy of right shoulder (Primary Dx) 06/04/2024 Telephone [facility] Primary Care at [address] [place] [phone] Monico James MD Medical Question/Miscellaneo us 06/03/2024 8:15 AM PINBALL MACHINE REPAIRER Clinical Support [facility] Primary Care at [address] [place] [phone] Deep vein thrombosis (DVT) of non-extremity vein, unspecified chronicity (Primary Dx); Other acute pulmonary embolism with acute cor pulmonale (HCC) 06/03/2024 Telephone [facility] Orthopedics and Sports Medicine [address] [place] [address] [address] [place] [phone] Rohith Boateng MD from Last 3 Months Immunizations Immunization Administration Dates Next Due HPV, Unspecified 05/16/2023(Deferred: Patient Re fused) Influenza, Split 03/30/2009 Influenza, Unspecified 05/14/2024(Deferr ed: Patient Refused),09/29/2023(Deferred: Patient Refused),05/10/2022(Deferred: Patient Refused),06/07/2021(Deferred: Patient Refused),04/02/2021(Deferred: Patient Refused),04/02/2021(Deferred: Patient Refused),04/02/2021(Deferred: Patient Refused),04/02/2020(Deferred: Patient Refused),06/07/2019(Deferred: Patient Refused),04/02/2019(Deferred: Patient Refused),03/27/2019(Deferred: Patient Refused),04/02/2018(Deferred: Patient Refused) Qianmi (J&J) SARS-CoV-2 Vaccination 09/04/2020 Pfizer SARS-CoV-2 Monovalent [...] often do you attend chur ch or buddhist services? More than 4 times per year 06/10/2021 Do you belong to any clubs o r organizations such as scientologist groups, unions, fraternal or athletic groups, or [...] place to sleep or slept in a correction (including now)? No 06/10/2021 Sex and Gender Information Value Date Recorded Sex Assigned at Not on file Legal Sex Male 5:57 PM PINBALL MACHINE REPAIRER Gender Identity Not on file Sexual Orientation Not on file Obstetrics History Last Filed Vital Signs Vital Sign Reading Time Taken Comments Blood Pressure 118/79 06/21/2024 9:25 AM PINBALL MACHINE REPAIRER Pulse 77 05/14/2024 9:11 AM PINBALL MACHINE REPAIRER Temperature 36.5 C (97.7 F) 05/14/2024 9:11 AM PINBALL MACHINE REPAIRER Respiratory Rate 16 05/14/2024 9:11 AM PINBALL MACHINE REPAIRER Oxygen Saturation 98% 05/14/2024 9:11 AM PINBALL MACHINE REPAIRER Inhaled Oxygen Concentration - - Weight 105.2 kg (232 lb) 06/21/2024 9:25 AM PINBALL MACHINE REPAIRER Height 165.1 cm (5' 5 ) 06/21/2024 9:25 AM PINBALL MACHINE REPAIRER Body Mass Index 38.61 06/21/2024 9:25 AM PINBALL MACHINE REPAIRER Plan of Treatment Health Maintenance Due Date [...] 07/14/2017, 018 Medical Devices Implanted Type Area Battery Engineer Device Identifier Shelf Expiration Date Model / Serial / Lot Allosource [id number] Crushed Chip Frozen Graft 30ml Bone Cancellous - [id number] Implanted:Qty: 1 on 03/09/2019 by Silver Cohen MD at [facility] N/A: Spine Lumbar Allosource 04/12/2023 [id number] / / [id number] Depuy Spine [id number] Expedium 1 Inner Monoaxial Spine Screw Set Titanium - [id number] Implanted:Qty: 8 on 03/09/2019 by Silver Cohen MD at [facility] N/A: Spine Lumbar Depuy Spine [id number] / / Depuy Spine [id number] Expedium 5.5mm 480mm Iam Spinal Titanium Nonsterile - [id number] Implanted:Qty: 1 on 03/09/2019 by Silver Cohen MD at [facility] N/A: Spine Lumbar Depuy Spine [id number] / / Depuy Spine [id number] Expedium 6mm 45mm 1 Innie Polyaxial Spine Screw Bone Titanium - [id number] Implanted:Qty: 8 on 03/09/2019 by Silver Cohen MD at [facility] N/A: Spine Lumbar Depuy Spine [id number] / / Medtronic Sofamor Danek [id number] Infuse 14mm 23mm Absorbable Sponge Sterile Water Syringe Needle - [id number] Implanted:Qty: 1 on 03/09/2019 by Silver Cohen MD at [facility] N/A: Spine Lumbar Medtronic Inc 01/30/2021 [id number] / / [id number] Procedures Procedure Name Priority Date/Time Associated Diagnosis Comments SCAN - LABS 08/23/2024 PROTIME-INR Routine 08/23/2024 POCT INR Routine 07/25/2024 8:17 AM PINBALL MACHINE REPAIRER Chronic bilateral deep venous thrombosis (DVT) of extremities (HCC) Other acute pulmonary embolism with acute cor pulmonale (HCC) XR SHOULDER RIGHT 2 OR MORE VIEWS Routine 06/21/2024 9:51 AM PINBALL MACHINE REPAIRER Traumatic complete tear of right rotator cuff, initial encounter POCT INR Routine 06/03/2024 8:30 AM PINBALL MACHINE REPAIRER Deep vein thrombosis (DVT) of non-extremity vein, unspecified chronicity Other acute pulmonary embolism with acute cor pulmonale (HCC) PSA SCREEN Routine 05/08/2023 9:50 AM PINBALL MACHINE REPAIRER Urine frequency HEPATITIS C AB REFLEX RNA QUANT PCR Routine 07/14/2017 11:53 AM PINBALL MACHINE REPAIRER HM COLONOSCOPY Routine 02/11/2013 from Last 3 Months or Most Recently Relevant to Health Maintenance Results * SCAN - LABS (08/23/2024) us Provider Scanning Final Result * (ABNORMAL) Protime-INR (08/23/2024) INR 1.20(A) 2.00 - 3.00 EXTERNAL LAB Blood 08/23/2024 us Monico James MD LAB BLOOD ORDERABLES Fi nal Result EXTERNAL LAB * (ABNORMAL) POCT INR (07/25/2024 8:17 AM PINBALL MACHINE REPAIRER) INR, POC 1.80(A) 2.00 - 3.00 Blood (Blood, Venous) 07/25/2024 8:17 AM PINBALL MACHINE REPAIRER Narrative Resulting Agency Comment Patient is taking [...] dental or other surgery scheduled in near [facility]? No Monico James MD POINT OF CARE TEST JUAN MANUEL DIXON Final Result * XR Shoulder Right 2 or More Views (06/21/2024 9:51 AM PINBALL MACHINE REPAIRER) Anatomical Region Laterality Modality Upper Extremities, Shoulder Right Digi edith Radiography Narrative 06/21/2024 11:34 AM PINBALL MACHINE REPAIRER Views of the right shoulder reviewed interpreted today. No evidence of fracture dislocation. Glenohumeral joint space well-maintained. Degenerative changes noted at AC joint with joint space narrowing subchondral sclerosis subacromial spurring. Swapnil SOARES IMG XR PROCEDURES Lorrie l Result * (ABNORMAL) POCT INR (06/03/2024 8:30 AM PINBALL MACHINE REPAIRER) INR, POC 1.70(A) 2.00 - 3.00 Blood (Blood, Venous) 06/03/2024 8:30 AM PINBALL MACHINE REPAIRER Narrative Resulting Agency Comment Patient is taking [...] dental or other surgery scheduled in near [facility]? No Monico James MD POINT OF CARE TEST ORDE RABLES Final Result * PSA screen (05/08/2023 9:50 AM PINBALL MACHINE REPAIRER) PSA-Total 0.59 <=6.20 ng/mL KENJI PAULSON ([place]) Comment: Interpretive Data AGE SEX REFERENCE INTERVAL [...] last revised 21. Blood 05/08/2023 9:50 AM PINBALL MACHINE REPAIRER 05/08/2023 9:58 AM PINBALL MACHINE REPAIRER Monico James MD LAB BLOOD ORDERABLES Fi nal Result KENJI PAULSON ([place]) 1 [facility] Department [place] [address] * Hepatitis C Antibody Reflex Hepatitis C RNA Quantitative PCR (07/14/2017 11:53 AM PINBALL MACHINE REPAIRER) Hep C Ab Negative Negative KENJI DING Blood specimen (specimen) 07/14/2017 11:53 AM PINBALL MACHINE REPAIRER 07/14/2017 12:13 PM PINBALL MACHINE REPAIRER Narrative KENJI DING - 07/14/2017 12:53 PM PINBALL MACHINE REPAIRER us Monico James MD LAB MICROBIOLOGY - GENE RAL ORDERABLES Final Result KENJI DING [id number] [place] [address] * COLONOSCOPY (02/11/2013) Colonoscopy Normal Comment:Hemorrhoidal disease us Historical Provider HEALTH MAINTENANCE Final Result from Last 3 Months or Most Recently Relevant to Health Maintenance Insurance MEDICARE [employer] COV[place] HMO/POS MEDICARE [facility] MEDICARE SUPPLEMENT INSURANCE [employer] PPO POS [employer] [facility] ADVANTRA Advance Directives For more information, please contact: [phone] * Full Code (Latest Code Status on File) Date Activated Date Inactivated Comments 05/28/2021 11:35 PM 06/01/2021 4:49 PM * Full Code Date Activated Date Inactivated Comments 03/08/2019 1:05 AM 03/19/2019 10:17 PM Care Teams Associate Professor Of Media Arts Relationship Specialty Start Date End Date Monico James MD PCP - General 09/30/16 Silver Cohen MD Consulting Physician Orthopedic Surgery 03/19/19
--- OUTSIDE RECORDS SUMMARY | 2024-08-27 00:09 | XMS_ITS | Encounter Summary ---
Author Organization [facility] Healthcare Address [address] [place] [address] Care Team Providers Care Agricultural Research Engineer Name Role Phone Monico James MD Primary Care Provider Silver Cohen MD Unavailable [phone]- [phone] Encounter Details Date Type Department Care Team (Late st Contact Info) Description 08/23/[address] [facility] Health Information Management [address] [place] [address] Scanning, Provider Social History Tobacco Use Types Packs/Day Years [...] often do you attend chur ch or sabianist services? More than 4 times per year 06/10/2021 Do you belong to any clubs o r organizations such as mandaeism groups, unions, fraternal or athletic groups, or [...] place to sleep or slept in a group home (including now)? No 06/10/2021 Sex and Gender Information Value Date Recorded Sex Assigned at Not on file Legal Sex Male 5:57 PM CSW Gender Identity Not on file Sexual Orientation Not on file documented as of this encounter Plan of Treatment Not on file documented as of this encounter Procedures Procedure Name Priority Date/Time Associated Diagnosis Comments SCAN - LABS 08/23/2024 documented in this encounter Results * SCAN - LABS (08/23/2024) us Provider Scanning Final Result documented in this encounter Visit Diagnoses Not on filedocumented in this encounter Care Teams Agricultural Research Engineer Relationship Specialty Start Date End Date Monico James MD PCP - General 09/30/16 Silver Cohen MD Consulting Physician Orthopedic Surgery 03/19/19 documented as of this encounter
--- OUTSIDE RECORDS SUMMARY | 2024-08-27 00:09 | XMS_ITS | Continuity of Care Document ---
Author Organization [facility] Address [address] [place] [phone] Phone Care Team Providers Care Seconds Grader Name Role Phone Gabe Contreras MD Unavailable Unavailable Procedures Procedure Date Office/outpatient visit,[facility] 2009 Office/outpatient visit,[facility] 2009 Advance Directives Directive Yes / No Effective Date File Name No Information Encounters Encounter Description Practice Location Reason(s) For Visit Diagnoses Date Provider Providers Copied on Encounter Office/outpat ient visit,[facility], [address], [address] [place] [address], tel:[phone] [facility] No Information 1 0 Diane Bernal. [address] [place] [address], [address] [place] [address] , . tel: [phone] Office/outpat ient visit,[facility], [address] [place] [address], [address] [place] [address], tel:[phone] [facility] No Information 2 0 Diane Bernal. [address] [place] [address], [address] [place] [address] , . tel: [phone] Family History Family Member Type Diagnosis Age At Onset No Information Payers Payer name Insurance type Covered alliance party ID Authorgracie bejarano(s) [employer] CI [id number] Social History Type Description Quantity Date Captured [...]
--- OUTSIDE RECORDS SUMMARY | 2024-08-27 00:09 | XMS_ITS | Encounter Summary ---
Author Organization [facility] Healthcare Address [address] [place] [address] Care Team Providers Care Employment Agency Manager Name Role Phone Monico James MD Primary Care Provider Silver Cohen MD Unavailable [phone]- [phone] Encounter Details Date Type Department Care Team (Late st Contact Info) Description 07/23/2024 Telephone [facility] Medical Group Primary Care at [address] [place] [address] Monico James MD [address] [place] [address] [address] [place] [address] Social History Tobacco Use Types [...] often do you attend chur ch or latter day services? More than 4 times per year 06/10/2021 Do you belong to any clubs o r organizations such as orthodox groups, unions, fraternal or athletic groups, or [...] place to sleep or slept in a longterm (including now)? No 06/10/2021 Sex and Gender Information Value Date Recorded Sex Assigned at Not on file Legal Sex Male 5:57 PM VOLLEYBALL PLAYER Gender Identity Not on file Sexual Orientation Not on file documented as of this encounter Plan of Treatment Not on file documented as of this encounter Visit Diagnoses Not on filedocumented in this encounter Care Teams Employment Agency Manager Relationship Specialty Start Date End Date Monico James MD PCP - General 09/30/16 Silver Cohen MD Consulting Physician Orthopedic Surgery 03/19/19 documented as of this encounter
--- OUTSIDE RECORDS SUMMARY | 2024-08-27 00:09 | XMS_ITS | Encounter Summary ---
Author Organization [facility] Healthcare Address [address] [place] [address] Care Team Providers Care Combination Operator Name Role Phone Monico James MD Primary Care Provider Silver Cohen MD Unavailable [phone]- [phone] Reason for Visit * Reason Onset Date Comments Medical Question/Miscellaneous 08/20/2024 Encounter Details Date Type Department Care Team (Late st Contact Info) Description 08/20/2024 Telephone [facility] Medical Group Primary Care at [address] [place] [address] Monico James MD [address] [place], [place] [address] [place] [address] Medical Question/Miscellaneous Social History Tobacco Use Types [...] How often do you attend chur or nondenominational services? More than 4 times per year 06/10/2021 Do you belong to any clubs o r organizations such as hoahaoism groups, unions, fraternal or athletic groups, or [...] on file Legal Sex Male 5:57 PM FELLMONGERING MACHINE OPERATOR Gender Identity Not on file Sexual Orientation Not on file documented as of this encounter Miscellaneous Notes * Telephone Encounter - Lucie Lafleur MA - 08/21/2024 10:11 AM FELLMONGERING MACHINE OPERATOR Patient aware of providers message. MONGERING MACHINE OPERATOR * Telephone Encounter - Monico James MD - 08/21/2024 10:03 AM FELLMONGERING MACHINE OPERATOR Tell him I did not personally authorize him to be contacted but many of these Medicare insurance companies like to reach out to the patient to make sure they get all of their needed preventive care. it is up to him if he wants to participate or not MONGERING MACHINE OPERATOR * Telephone Encounter - Sammie Elliott - 08/20/2024 4:13 PM CST Medical Question/Miscellaneous Caller???s Concern: Patient is calling to verify that the PCP has not advised a company to contact him for an at home visit to take vitals, etc. Patient states he wants to make sure this is not a scam. Does message need to be routed? Yes-Action Needed MONGERING MACHINE OPERATOR documented in this encounter Plan of Treatment Not on file documented as of this encounter Visit Diagnoses Not on filedocumented in this encounter Care Teams Combination Operator Relationship Specialty Start Date End Date Monico James MD PCP - General 09/30/16 Silver Cohen MD Consulting Physician Orthopedic Surgery 03/19/19 documented as of this encounter
--- OUTSIDE RECORDS SUMMARY | 2024-08-27 00:09 | XMS_ITS | Continuity of Care Document ---
Author Organization [facility] Address [address] [place] [address] Phone Care Team Providers Care Property Management Assistant Name Role Phone Satya Abreu Unavailable Unavailable [...] Diagnoses Date Provider Providers Copied on Encounter [facility], [address], [place], [place], [id number], [place] tel:[phone] [facility] No Information 2-201 0 Brady Hernadez. [address] [facility] [address] , [address], [place], [address], [place]. tel:[phone] Referring Provider: Adele Fernandez, [address], [place], [address]. tel:[phone] Office/outpat ient Visit, Est [facility], [address] [place] [address] [address], [place], [place], [address], [place] tel:[phone] [facility] No Information 0 Doisy Edward. [facility] [facility] [address], [place], [place], [facility], . tel:[phone] Referring Provider: Adele Fernandez, [address] [place] [address], [facility]. tel:[phone] Office/outpat ient Visit, [facility], [address] [place] [address] [address], [place], [place], [id number], tel:[phone] [facility] No Information 0-201 0 Krishnasamy Reece. [address] [place] [address], [facility], . tel:[phone] Referring Provider: Adele Fernandez, [address] [place] [address], [facility]. tel:[phone] Office/outpat ient Visit, [facility], [address] [place] [address] [address], [place], [place], [id number], [place] tel:[phone] [facility] No Information 8-201 0 Krishnasamy Reece. [address] [place] [address] [place] [address], [facility], [place]. tel:[phone] Referring Provider: Adele Fernandez, [address] [place] [address], [facility]. tel:[phone] Office/outpat ient Visit, [facility], [address] [place] [address] [address], [place], [place], [id number], [place] tel:[phone] [facility] [place] No Information 1-201 0 Krishnasamy Reece. [address] [place] [address] [place] [address], [facility], [place]. tel:[phone] Referring Provider: Adele Fernandez, [address] [place], [address]. tel:[phone] Office/outpat ient Visit, [facility], [address] [place] [address] [address], [place], [place], [id number], [place] tel:[phone] SEC [place] [facility] No Information 4200 9 Krishnasamy Reece. [address] [facility] [address], [place], [facility], [place]. tel:[phone] Referring Provider: Adele Fernandez, [address] [place] [address], [address]. tel:[phone] Office/outpat ient Visit, [facility], [address] [place] [address] [address], [place], [place], [id number], [place] tel:[phone] SEC [place] No Information 0200 9 Krishnasamy Reece. [address] [facility] [address], [place], [address], [place]. tel:[phone] Referring Provider: Adele Fernandez, [facility] [place], [address]. [phone] Office/outpat ient Visit, [facility], [address] [place] [address] [address], [place], [place], [id number], [place] tel:[phone] SEC [place] No Information 3200 9 Krishnasamy Reece. [address] [facility] [address], [place], [address], [place]. tel:[phone] Referring Provider: Adele Fernandez, [address] [place], [address]. tel:[phone] [facility], [address] [place] [address] [address], [place], [place], [id number], [place] tel:[phone] SEC [place] No Information 5200 9 Ihsan Newell. [address] [facility] [address], [place], [address], [place]. tel:[phone] Referring Provider: Paul Helms MD M, [address] [place], [address]. tel:[phone] Office/outpat ient Visit, Est [facility], [address], [place], [place], [id number], [place] tel:[phone] SEC [place] No Information Aug-2 6-200 7 Wankum Romero. [address] [facility], [facility] [place], [id number], [place]. tel:[phone] Office Consultation [facility], [address], [place], [place], [address], [place] tel:[phone] [place] No Information Aug-0 5-200 7 Wankum Romero. [address], [place], [place], [address], [place]. [phone] Referring Provider: Adele Fernandez, [address] [place], [address]. tel:[phone] Family History Family Member Type Diagnosis Age [...]
--- OUTSIDE RECORDS SUMMARY | 2024-08-27 00:09 | XMS_ITS | Encounter Summary ---
Author Organization [facility] Address [address] [place] [address] Phone Care Team Providers Care Traveling Construction Superintendent Name Role Phone Monico James MD Primary Care Provider Silver Cohen MD Unavailable [phone] Venus Baer RN Unavailable [phone] Flo Davis RN Unavailable [phone] Encounter Details Date Type Department Care Team (Late st Contact Info) Description 07/14/2017 Orders Only [facility] ProviderMarck MD [address] [place] [address] Social History Tobacco Use Types Packs/Day Years Used Date Smoking Tobacco: Never Alcohol Use Standard Drinks/Week Comments Yes 0 (1 standard drink = 0.6 oz pur e alcohol) Sex and Gender Information Value Date Recorded Sex Assigned at Not on file Legal Sex Male 5:57 PM YARN MERCERIZER OPERATOR HELPER Gender Identity Not on file Sexual Orientation Not on file documented as of this encounter Plan of Treatment Not on file documented as of this encounter Procedures Procedure Name Priority Date/Time Associated Diagnosis Comments DISCHARGE LABORATORY CUMULATIVE REPORT 07/14/2017 12:00 AM YARN MERCERIZER OPERATOR HELPER documented in this encounter Results * DISCHARGE LABORATORY CUMULATIVE REPORT (07/14/2017 12:00 AM YARN MERCERIZER OPERATOR HELPER) Narrative 07/14/2017 12:00 AM YARN MERCERIZER OPERATOR HELPER Ordered by an unspecified provider. us Historical Provider LAB BLOOD ORDERABLES Lorrie l Result documented in this encounter Visit Diagnoses Not on filedocumented in this encounter Care Teams Traveling Construction Superintendent Relationship Specialty Start Date End Date Monico James MD PCP - General 09/30/16 Silver Cohen MD Consulting Physician Orthopedic Surgery 03/19/19 Venus Baer, CHACHO [address] [place] [address] Metallurgy Teacher 03/20/19 04/21/19 Flo Davis, [place] [address] [place] [address] Metallurgy Teacher 06/02/21 07/08/21 documented as of this encounter
--- OUTSIDE RECORDS SUMMARY | 2024-08-27 00:09 | XMS_ITS | Referral Summary ---
Author Organization [facility] Address [address] [place] [address] Care Team Providers Care Ehr Trainer Name Role Phone Monico James MD Primary Care Provider Silver Cohen MD Unavailable [phone] Encounters Date Type Department Care Team Description 08/23/2024 Orders Only [facility] Health Information Management [address] [place] [id number] Scanning, Provider 08/23/2024 Anticoagulation Telephone Call [facility] Primary Care at [address] [place] [phone] Monico James MD Deep vein thrombosis (DVT) of non-extremity vein, unspecified chronicity (Primary Dx); Chronic bilateral deep venous thrombosis (DVT) of extremities (HCC); Other acute pulmonary embolism with acute cor pulmonale (HCC) 08/20/2024 Telephone [facility] Primary Care at [address] [place] [phone] Monico James MD Medical Question/Miscellaneo us 07/25/2024 8:00 AM ASSET PROTECTION PROFESSIONAL Clinical Support [facility] Primary Care at [address] [place] [phone] Chronic bilateral deep venous thrombosis (DVT) of extremities (HCC) (Primary Dx); Other acute pulmonary embolism with acute cor pulmonale (HCC) 07/23/2024 Telephone [facility] Primary Care at [address] [phone] Monico James MD Referral Request 07/23/2024 Telephone [facility] Medical [facility] Primary Care at [address] [phone] Monico James MD 07/04/2024 Documentation [facility] [address] [place] [address] [address] [place] [address] Dahlia Horan MA 06/24/2024 Telephone [facility] [address] [place] [address], [place] [phone] Swapnil Suazo PA 06/21/2024 Orders Only [facility] [address] [place] [address] [address] [place] [address] Swapnil Suazo PA Osteoarthritis of right AC (acromioclavicular) joint (Primary Dx); Biceps tendonitis, right; Traumatic complete tear of right rotator cuff, initial encounter 06/21/2024 7:40 AM ASSET PROTECTION PROFESSIONAL - 06/21/2024 11:59 PM ASSET PROTECTION PROFESSIONAL Hospital Encounter [facility] [address] [place] [address] [address] [place] [phone] Discharge Disposition: Discharge to home or self care 06/21/2024 9:30 AM ASSET PROTECTION PROFESSIONAL Office Visit [facility] [address] [place] [phone] Swapnil Suazo PA Traumatic complete tear of right rotator cuff, initial encounter (Primary Dx); Biceps tendonitis, right; Osteoarthritis of right AC (acromioclavicular) joint; Degenerative tear of glenoid labrum of right shoulder 06/04/2024 Orders Only [facility] Medical Group Primary Care at [address] [phone] Monico James MD Rotator cuff tear arthropathy of right shoulder (Primary Dx) 06/04/2024 Telephone [facility] Medical Group Primary Care at [place] [address] [facility] [address] [place] [address] Monico James MD Medical Question/Miscellaneo us 06/03/2024 Telephone [facility] [address] [facility] [address] [place] [phone] Rohith Boateng MD 06/03/2024 8:15 AM ASSET PROTECTION PROFESSIONAL Clinical Support [facility] Primary Care at [address] [place] [address] Deep vein thrombosis (DVT) of non-extremity vein, [...] 02/23/2016 Rheumatoid arthritis involving multiple sites ([facility]) 11/16/2013 Overview (10/05/2016): RHEUMATOID ARTHRITIS Benign hypertension 11/16/2013 Overview (10/05/2016): BENIGN HYPERTENSION Deep vein thrombosis (DVT) ([facility]) 11/16/2013 Overview (10/07/2016): DVT (Deep Venous Thrombosis) [...] (03/09/2019): Added automatically from request for surgery [id number] Slowing of urinary stream 01/14/2014 Overview (10/06/2016): [...] Refused),04/02/2019(Deferred: Patient Refused),03/27/2019(Deferred: Patient Refused),04/02/2018(Deferred: Patient Refused) [employer] (J[employer]J) SARS-CoV-2 Vaccination 09/04/2020 Pfizer SARS-CoV-2 Monovalent [...] week 06/10/2021 How often do you attend [facility] or spiritism services? More than 4 times per year 06/10/2021 Do you belong to any clubs o r organizations such as shinto groups, unions, fraternal or athletic groups, or [...] on file Legal Sex Male 5:57 PM ASSET PROTECTION PROFESSIONAL Gender Identity Not on file Sexual Orientation Not on file Last Filed Vital Signs Vital Sign Reading Time Taken Comments Blood Pressure 118/79 06/21/2024 9:25 AM ASSET PROTECTION PROFESSIONAL Pulse 77 05/14/2024 9:11 AM ASSET PROTECTION PROFESSIONAL Temperature 36.5 C (97.7 F) 05/14/2024 9:11 AM ASSET PROTECTION PROFESSIONAL Respiratory Rate 16 05/14/2024 9:11 AM ASSET PROTECTION PROFESSIONAL Oxygen Saturation 98% 05/14/2024 9:11 AM ASSET PROTECTION PROFESSIONAL Inhaled Oxygen Concentration - - Weight 105.2 kg (232 lb) 06/21/2024 9:25 AM ASSET PROTECTION PROFESSIONAL Height 165.1 cm (5' 5 ) 06/21/2024 9:25 AM ASSET PROTECTION PROFESSIONAL Body Mass Index 38.61 06/21/2024 9:25 AM ASSET PROTECTION PROFESSIONAL Plan of Treatment Not on file Medical Devices Implanted Type Area Marking Stitcher Device Identifier Shelf Expiration Date Model / Serial / Lot Allosource [id number] Crushed Chip Frozen Graft 30ml Bone Cancellous - [id number] Implanted:Qty: 1 on 03/09/2019 by Silver Cohen MD at [facility] N/A: Spine Lumbar Allosource 04/12/2023 [id number] / / [id number] Depuy Spine [id number] Expedium 1 Inner Monoaxial Spine Screw Set Titanium - [id number] Implanted:Qty: 8 on 03/09/2019 by Silver Cohen MD at [facility] N/A: Spine Lumbar Depuy Spine [id number] / / Depuy Spine [id number] Expedium 5.5mm 480mm Iam Spinal Titanium Nonsterile - [id number] Implanted:Qty: 1 on 03/09/2019 by Silver Cohen MD at [facility] N/A: Spine Lumbar Depuy Spine [id number] / / Depuy Spine [id number] Expedium 6mm 45mm 1 Innie Polyaxial Spine Screw Bone Titanium - [id number] Implanted:Qty: 8 on 03/09/2019 by Silver Cohen MD at [facility] N/A: Spine Lumbar Depuy Spine [id number] / / Medtronic Sofamor Dane[employer] [id number] Infuse 14mm 23mm Absorbable Sponge Sterile Water Syringe Needle - [id number] Implanted:Qty: 1 on 03/09/2019 by Silver Cohen MD at [facility] N/A: Spine Lumbar Medtronic Inc 01/30/2021 [id number] / / [id number] Procedures Procedure Name Priority Date/Time Associated Diagnosis Comments SCAN - LABS 08/23/2024 PROTIME-INR Routine 08/23/2024 POCT INR Routine 07/25/2024 8:17 AM ASSET PROTECTION PROFESSIONAL Chronic bilateral deep venous thrombosis (DVT) of extremities (HCC) Other acute pulmonary embolism with acute cor pulmonale (HCC) XR SHOULDER RIGHT 2 OR MORE VIEWS Routine 06/21/2024 9:51 AM ASSET PROTECTION PROFESSIONAL Traumatic complete tear of right rotator cuff, initial encounter POCT INR Routine 06/03/2024 8:30 AM ASSET PROTECTION PROFESSIONAL Deep vein thrombosis (DVT) of non-extremity vein, unspecified chronicity Other acute pulmonary embolism with acute cor pulmonale (HCC) PSA SCREEN Routine 05/08/2023 9:50 AM ASSET PROTECTION PROFESSIONAL Urine frequency HEPATITIS C AB REFLEX RNA QUANT PCR Routine 07/14/2017 11:53 AM ASSET PROTECTION PROFESSIONAL HM COLONOSCOPY Routine 02/11/2013 from Last 3 Months or Most Recently Relevant to Health Maintenance Results * SCAN - LABS (08/23/2024) us Provider Scanning Final Result * (ABNORMAL) Protime-INR (08/23/2024) INR 1.20(A) 2.00 - 3.00 EXTERNAL LAB Blood 08/23/2024 us Monico James MD LAB BLOOD ORDERABLES Fi nal Result EXTERNAL LAB * (ABNORMAL) POCT INR (07/25/2024 8:17 AM ASSET PROTECTION PROFESSIONAL) INR, POC 1.80(A) 2.00 - 3.00 Blood (Blood, Venous) 07/25/2024 8:17 AM ASSET PROTECTION PROFESSIONAL Narrative Resulting Agency Comment Patient is taking [...] dental or other surgery scheduled in near [facility]? No Monico James MD POINT OF CARE TEST JUAN MANUEL DIXON Final Result * XR Shoulder Right 2 or More Views (06/21/2024 9:51 AM ASSET PROTECTION PROFESSIONAL) Anatomical Region Laterality Modality Upper Extremities, Shoulder Right Digi edith Radiography Narrative 06/21/2024 11:34 AM ASSET PROTECTION PROFESSIONAL Views of the right shoulder reviewed interpreted today. No evidence of fracture dislocation. Glenohumeral joint space well-maintained. Degenerative changes noted at AC joint with joint space narrowing subchondral sclerosis subacromial spurring. Swapnil SOARES IMG XR PROCEDURES Lorrie l Result * (ABNORMAL) POCT INR (06/03/2024 8:30 AM ASSET PROTECTION PROFESSIONAL) INR, POC 1.70(A) 2.00 - 3.00 Blood (Blood, Venous) 06/03/2024 8:30 AM ASSET PROTECTION PROFESSIONAL Narrative Resulting Agency Comment Patient is taking [...] dental or other surgery scheduled in near [facility]? No Monico James MD POINT OF CARE TEST ORDE RABLES Final Result * PSA screen (05/08/2023 9:50 AM ASSET PROTECTION PROFESSIONAL) Pathologist [facility] PSA-Total 0.59 <=6.20 ng/mL KENJI PAULSON ([place]) Comment: Interpretive Data AGE SEX REFERENCE INTERVAL [...] last revised 21. Blood 05/08/2023 9:50 AM ASSET PROTECTION PROFESSIONAL 05/08/2023 9:58 AM ASSET PROTECTION PROFESSIONAL Monico James MD LAB BLOOD ORDERABLES Fi nal Result KENJI PAULSON ([place]) [address] [facility] Department [place] [address] * Hepatitis C Antibody Reflex Hepatitis C RNA Quantitative PCR (07/14/2017 11:53 AM ASSET PROTECTION PROFESSIONAL) Pathologist [facility] Hep C Ab Negative Negative KENJI DING Blood specimen (specimen) 07/14/2017 11:53 AM ASSET PROTECTION PROFESSIONAL 07/14/2017 12:13 PM ASSET PROTECTION PROFESSIONAL Narrative KENJI DING - 07/14/2017 12:53 PM ASSET PROTECTION PROFESSIONAL us Monico James MD LAB MICROBIOLOGY - GENE RAL ORDERABLES Final Result KENJI [id number] [place] [address] * COLONOSCOPY (02/11/2013) Colonoscopy Normal Comment:Hemorrhoidal disease us Historical Provider HEALTH MAINTENANCE Final Result from Last 3 Months or Most Recently Relevant to Health Maintenance Insurance MEDICARE [facility] Address: [address] [address] [place] [address] [employer] [place] HMO/POS MEDICARE [facility] MEDICARE SUPPLEMENT INSURANCE [employer] PPO POS [facility] Advance Directives For more information, please contact: [phone] * Full Code (Latest Code Status on File) Date Activated Date Inactivated Comments 05/28/2021 11:35 PM 06/01/2021 4:49 PM * Full Code Date Activated Date Inactivated Comments 03/08/2019 1:05 AM 03/19/2019 10:17 PM Care Teams Ehr Trainer Relationship Specialty Start Date End Date Monico James MD PCP - General 09/30/16 Silver Cohen MD Consulting Physician Orthopedic Surgery 03/19/19
[2024-08-27 11:46] LABS: Prothrombin Time 13.2 Seconds (11.1-14.7)
[2024-08-27 11:48] LABS: Partial Thromboplastin Time 24.5 Seconds (22.3-36.8)
[2024-08-27] MEDS: KETOROLAC 15 MG/ML VIAL (*BKC) IV PUSH (12:25)
[2024-08-27] MEDS: LACTATED RINGERS 1,000 ML 30 ML IV CONT (12:25)
[2024-08-27] MEDS: ACETAMINOPHEN 500 MG TABLET 1000 MG PO (12:25)
--- NOTE | 2024-08-27 12:41 | WPDHPUPDATE1 ---
History and Physical Update Update Date/Time: 08/27/24 12:41 History and Physical has been reviewed, including an updated exam of the patient. There are NO changes in the patient's condition. Risks, benefits, and alternatives have been discussed and questions answered. Patient agrees to proceed with procedure.
--- NOTE | 2024-08-27 12:43 | P.PNAN_ITS ---
Anes - Initial Pre Proc Eval Procedure: Operation Date: 08/27/24 13:30 Proposed Procedures p Right Shoulder Arthroscopy Rotator Cuff Repair with Biceps Tenodesis - Stu Hawthorne MD Date/Time: 08/27/24 12:43 Surgeon: Stu Hawthorne MD Pre Op Diagnosis: Complete Right Rot Cuff tear Patient Data Age: 74 Gender: M Height: 1.7 m Weight: 104 kg Last Vital Signs Temp 36.2 C L 08/27/24 12:25 Pulse 65 08/27/24 12:25 Resp 14 08/27/24 12:25 BP 127/63 08/27/24 12:25 Pulse Ox 100 08/27/24 12:25 O2 Del Method Room Air 08/27/24 12:25 Allergies Allergy/AdvReac Type Severity Reaction Status Date / Time adhesive tape Allergy Itching, Verified 08/27/24 12:43 REDNESS chlorhexidine Allergy Rash, Verified 08/27/24 12:43 REDNESS AT SITE SKIN Home Medications ?Medication ?Instructions ?Recorded ?Confirmed ?Type methotrexate sodium 2.5 mg tablet 7.5 mg PO WEEKLY 07/02/24 08/27/24 History naproxen sodium 220 mg tablet 220 mg PO BID PRN pain 07/02/24 08/19/24 History (Flanax (naproxen)) phentermine 15 mg capsule 15 mg PO DAILY 07/02/24 08/19/24 History warfarin 1 mg tablet 1 mg PO .COMPLEX 07/02/24 08/27/24 History warfarin 5 mg tablet 5 mg PO DAILY 07/02/24 08/27/24 History magnesium 1 tablet PO HS 08/14/24 08/27/24 History potassium 99 mg tablet 99 mg PO DAILY 08/14/24 08/27/24 History propylene glycol 0.6 % eye drops 1 drp EACH EYE Q6-8H PRN dry eye(s) 08/14/24 08/19/24 History (Systane Complete) oxycodone-acetaminophen 5 mg-325 1 - 2 tablet PO Q4-6H PRN pain 7 08/27/24 Rx mg tablet days #30 tabs Laboratory Tests 08/27/24 11:17 PT 13.2 Seconds (11.1-14.7) INR 1.0 APTT 24.5 Seconds (22.3-36.8) Patient hx anesthesia problems: none Family hx anesthesia problems: none Results Review: All pre-operative results and documents have been reviewed as part of the pre- operative evaluation. [facility] Past Medical History Medical History History of pulmonary embolism Hx of deep venous thrombosis Personal history of other medical treatment Surgical History Surgical History Hx of arthroscopy of knee Hx of total hip arthroplasty Hx of cholecystectomy Social History Social History Smoking status: Never smoker Alcohol intake: current Drinks per week: 1 Substance use: never Substance use type: does not use Do You Feel Safe in your Home?: Yes Lack of Transportation: No Lack of Food: Never True Current Housing: I Have Housing Concerned About Future Housing: No Difficulty Paying Gas/Electric Bills: No Difficulty Paying for Meds: No Currently Unemployed: No Education: Trade/Vocational Certificate Difficulty w/ Childcare or Family Care: No Living arrangements: with family Additional living arrangements comments: Spiritual care concerns: No Anes - Eval Final PreProcedure Day of Procedure 08/27/24 12:43 Patient weight: obese Heart: regular rate and rhythm Lungs: clear to auscultation Airway: Mallampati scale class II Neurological: alert and oriented Last oral intake: >/= 8 hours ASA classification: III Emergent: no Anesthetic plan: proceed Anesthesia type and monitoring: general ETT and standard monitoring Results Review: All pre-operative results and documents have been reviewed as part of the pre- operative evaluation. Informed Consent: The patient's anesthetic plan and its attendant risks and benefits were discussed with the patient/family/POA. Questions were solicited and answers provided to the satisfaction of the patient/family/POA.
[2024-08-27] MEDS: BUPIVACAINE/EPINEPHRINE 0.5% 30 ML VIAL INFILTRATE (13:08)
[2024-08-27] MEDS: EPINEPHrine HCL INJ 1 MG/ML AMPUL 3 MG IRRIGATION (13:08)
[2024-08-27] MEDS: ceFAZolin 2 GM/D5W 50 ML 2 GM/50 ML BAG IVPB (13:08)
--- NOTE | 2024-08-27 16:26 | WPDANESPNB ---
Anes - Peripheral Nerve Block Date/Time: 08/27/24 16:26 I have discussed with the patient/family/POA the placement of a peripheral nerve block for post-operative pain management, including associated risks, benefits, complications, and side effects. Alternative methods of post-operative analgesia were detailed. Questions were solicited and answers provided to the satisfaction of the patient/family/POA. Time-Out: A pre-procedural Time-Out was completed immediately before starting the procedure and confirmed: Patient Identification, Site, Procedure, Patient Position and the Availability of Requisite Equipment. Clinical Indications: Acute post-operative pain management requested by the operative surgeon. Nerve Block Insertion Note Anes-nerve block: interscalene right Patient position: supine Skin prep: chlorhexidine Needle: 22 gauge, stimulating, insulated echogenic needle. Needle length: 50 mm Technique: ultrasound Injectate: bupivacaine 0.5% with epi 5 mcg/ml (20cc- no epi) Observations: tolerated well Complications: none Procedure start time:: 1620 Procedure end time:: 1623
--- NOTE | 2024-08-27 16:31 | W.PM.PROC2 ---
Procedure Note - Detailed Date of Procedure 08/27/24 Pre-op Diagnosis Complete Right rotator cuff tear Post-op Diagnosis Other (1. Complete large rotator cuff tear 2. Subacromial impingement 3. Biceps tendinosis 4. Degenerative labral tear) Procedure Performed Right shoulder 1. Arthroscopic rotator cuff repair 2. Arthroscopic subacromial decompression 3. Arthroscopic biceps tenodesis 4. Arthroscopic labral debridement Surgeon Stu Hawthorne MD Electric [employer] Operator Carolyn Tapia PA-C Anesthesia General and Regional ( interscalene block) Findings Very large rotator cuff tear including the supraspinatus and infraspinatus as well as the upper subscapularis. The biceps was severely degenerative with displacement into the upper subscapularis and a superior labral tear. The labrum was debrided and the biceps released for later tenodesis. Four suture anchors (double and triple loaded) were used to repair the entire cuff repair starting with the subscapularis. Biceps tenodesis was incorporated into the anterior anchor. Large anterolateral subacromial spur treated with acromioplasty. The articular cartilage of the shoulder was normal. Description of Procedure Preoperative antibiotics were given. An interscalene block was administered in the preoperative area. The patient was bought brought to the operating room. A general anesthetic was administered. The patient was carefully positioned in the beach chair position. The head and neck were carefully positioned. The non operative extremity was also carefully positioned. The shoulder was prepped and draped in the usual sterile fashion. Examination was performed. Standard posterior and anterior arthroscopic portals were established. Inflow achieved with the arthroscopic pump using saline and epinephrine. The glenohumeral joint was carefully inspected. The articular cartilage was normal. The large rotator cuff tear was confirmed. Biceps was disrupted at the superior anchor and was released. Removal of the degenerative superior labral tissue was accomplished with the shaver and the radiofrequency probe. The upper border of the subscapularis was torn with a comma sign. The biceps tendon was released for later repair. Attention was turned to the subacromial space. A complete bursectomy was performed. The significant subacromial spur was treated with the arthroscopic bur to create a nice flat surface. The tear configuration was carefully assessed. The very large tear had moderate retraction and was poorly mobile. It was elected to perform a single row repair. The articular cartilage was recessed 5 mm. The 1st suture anchor was placed at the upper aspect of the lesser tuberosity. Two sutures were placed into the subscapularis which reduced it very securely. The 3rd suture was used to tenodesed the biceps with multiple suture passage and cerclage. Three additional anchors were placed across the greater tuberosity and multiple sutures were placed into the rotator cuff tear. The tear was more mobile translating from posterior to anterior and this was incorporated into the repair construct. Good tissue bites were obtained without undue tension. The sutures were tied arthroscopically. The arthroscopic instruments were removed. The wounds were closed with 3-0 Monocryl subcuticular suture and steri strips. There were no complications. A sling was applied and the patient brought to the recovery room. Physician physician assistant certified, Carolyn Tapia PA-C, required for surgery; including patient positioning, draping, arthroscopic camera operation, maintaining instrument position, suture retrieval, wound closure, and dressing and sling placement. Implants Arthrex FiberTak suture anchors. Four anchors utilized. Three double loaded and 2 triple loaded. Estimated Blood Loss 20 Pathology None sent Complications No immediate complications Condition Stable Disposition PACU [facility] Billing Surgery - Charge Forward: Surgery Billing
== END 2024-08-27 18:04 | disposition home or self-care (01) ==
PROVIDERS: Anesthesiology; PCP Internal Medicine; Visit Provider Orthopaedic Surgery
PROC: (CPT 29805; principal; 2024-08-27 13:30)
DX: S46.011A Strain of muscle(s) and tendon(s) of the rotator cuff of right shoulder, initial encounter (principal); M75.81 Other shoulder lesions, right shoulder; M75.41 Impingement syndrome of right shoulder; M75.21 Bicipital tendinitis, right shoulder; G89.18 Other acute postprocedural pain; W19.XXXA Unspecified fall, initial encounter; Z79.01 Long term (current) use of anticoagulants
CPT/HCPCS: 29827; 29828; 29826; 64415; 36415; 85610; 85730; A4565; A9270; C1713; J0171; J0690; J1100; J1885; J2405; J2704; J3010; J7120